=== PATIENT | male | born 1995 ===

== ENCOUNTER 2023-10-30 17:45 | Emergency (ER) | payer BC ==
[2023-10-30 18:06] LABS: APPEARANCE,URINE SLT CLOUDY; BILIRUBIN,URINE NEGATIVE (NEGATIVE); COLOR,URINE YELLOW; GLUCOSE,URINE NEGATIVE (NEGATIVE); KETONES,URINE NEGATIVE (NEGATIVE); NITRITE,URINE POSITIVE (NEGATIVE); OCCULT BLOOD,URINE SMALL (NEGATIVE); PROTEIN,URINE 30 mg/dL (NEGATIVE); UROBILINOGEN,URINE 0.2 EU/dL (<2.0)
[2023-10-30 18:19] LABS: LEUKOCYTE ESTERASE,URINE MODERATE (NEGATIVE)
[2023-10-30 18:20] LABS: EPITHELIAL CELLS,URINE FEW (NONE-FEW)
[2023-10-30 18:21] LABS: BACTERIA,URINE MANY (NEGATIVE)
== END 2023-10-30 20:15 | disposition home or self-care (01) ==
LOC: MW.ED 17:45
DX: N45.3 Epididymo-orchitis (principal); N39.0 Urinary tract infection, site not specified; Z75.8 Other problems related to medical facilities and other health care
CPT/HCPCS: 76870; 76870-26; 81001; 93976; 93976-26; 99284